=== PATIENT | female | born 1990 | race Caucasian/White ===

== ENCOUNTER → 2023-11-29 06:35 | Day surgery (SDC) | payer OTHER, SELFPAY ==
[2023-11-29 10:25] LABS: HCG, Serum Qualitative Screen Negative
== END ==
LOC: GI 06:35
PROVIDERS: Anesthesiology; ATTENDING PHYSICIAN Internal Medicine; FAMILY PHYSICIAN Family Medicine
DX: K62.89 Other specified diseases of anus and rectum (principal); Z87.19 Personal history of other diseases of the digestive system
CPT/HCPCS: 45331; 88305; 84703

== ENCOUNTER → 2024-06-27 09:08 | Outpatient (REF) | payer BC, SELFPAY | LOC: PNTC 09:08 | PROVIDERS: ATTENDING PHYSICIAN Obstetrics & Gynecology | DX: Z36.0 Encounter for antenatal screening for chromosomal anomalies (principal); Z36.82 Encounter for antenatal screening for nuchal translucency | CPT/HCPCS: 76801; 76813 ==

== ENCOUNTER → 2024-07-25 08:51 | Outpatient (REF) | payer BC, SELFPAY | LOC: PNTC 08:51 | PROVIDERS: ATTENDING PHYSICIAN Obstetrics & Gynecology | DX: Z87.74 Personal history of (corrected) congenital malformations of heart and circulatory system (principal); K51.00 Ulcerative (chronic) pancolitis without complications; O09.519 Supervision of elderly primigravida, unspecified trimester; O09.529 Supervision of elderly multigravida, unspecified trimester | CPT/HCPCS: 76805 ==

== ENCOUNTER → 2024-09-12 13:28 | Outpatient (REF) | payer BC, OTHER, SELFPAY | LOC: PNTC 13:28 | PROVIDERS: ATTENDING PHYSICIAN Obstetrics & Gynecology | DX: O09.529 Supervision of elderly multigravida, unspecified trimester (principal); Z87.59 Personal history of other complications of pregnancy, childbirth and the puerperium; Z87.74 Personal history of (corrected) congenital malformations of heart and circulatory system | CPT/HCPCS: 76811; 76817 ==

== ENCOUNTER → 2024-11-27 13:19 | Outpatient (REF) | payer BC, OTHER, SELFPAY | LOC: PNTC 13:19 | PROVIDERS: ATTENDING PHYSICIAN Obstetrics & Gynecology | DX: O09.529 Supervision of elderly multigravida, unspecified trimester (principal) | CPT/HCPCS: 76816 ==

== ENCOUNTER 2024-12-26 11:26 | Inpatient (IN) | payer BC, OTHER, SELFPAY ==
[2024-12-26 11:31] VITALS: BP 117/98; BMI 26.1
[2024-12-26] MEDS: LR 1000 IV ×2 (11:51→14:10)
[2024-12-26 11:58] LABS: Hematocrit 34.3 % (37.0-47.0); Hemoglobin 11.2 g/dL (12.0-16.0); Mean Corp Hgb Conc. 32.7 g/dL (33.0-37.0); Mean Corpuscular Volume 88.9 fL (81.0-99.0); Nucleated Red Blood Cells % 0 %; Platelet Count 216 10^3/uL (130-400); Red Cell Dist. Width 14.2 % (11.5-14.5)
[2024-12-26] MEDS: SUBLIMAZE 100 MCG EPIDURAL (12:22)
[2024-12-26] MEDS: FENTANYL/BUPIVACAINE 100 EPIDURAL (12:33)
[2024-12-26] MEDS: PITOCIN 30 UNITS/NSS 500 ML IV (17:24)
[2024-12-26] MEDS: XYLOCAINE-MPF 1% VIAL 30 ML INFIL (17:30)
[2024-12-26] MEDS: TORADOL 15 MG IV (18:17)
[2024-12-26] MEDS: PRENATAL PLUS 1 TABLET PO (21:08)
[2024-12-26] MEDS: COLACE PO (21:11)
[2024-12-27] MEDS: MOTRIN 600 MG PO ×4 (01:29→21:06)
[2024-12-27 05:10] LABS: Hematocrit 28.4 % (37.0-47.0); Hemoglobin 9.2 g/dL (12.0-16.0)
[2024-12-27] MEDS: COLACE 100 MG PO ×2 (07:58→20:43)
[2024-12-27] MEDS: FEOSOL 325 MG PO (07:58)
[2024-12-27] MEDS: PRENATAL PLUS 1 TABLET PO (20:43)
[2024-12-28] MEDS: MOTRIN 600 MG PO ×2 (03:07→09:48)
[2024-12-28] MEDS: FEOSOL 325 MG PO (08:36)
[2024-12-28] MEDS: COLACE 100 MG PO (08:36)
[2024-12-29 11:13] LABS: Syphilis/T. pallidum Ab Reflex Negative (Negative)
== END 2024-12-28 12:55 | disposition home or self-care (01) | DRG 768 ==
LOC: LDRP 11:26
PROVIDERS: ADMITTING PHYSICIAN Obstetrics & Gynecology
PROC: 10E0XZZ Delivery of Products of Conception, External Approach (ICD-10-PCS; 2024-12-26)
PROC: 10907ZC Drainage of Amniotic Fluid, Therapeutic from Products of Conception, Via Natural or Artificial Opening (ICD-10-PCS; 2024-12-26)
PROC: 0DQR0ZZ Repair Anal Sphincter, Open Approach (ICD-10-PCS; 2024-12-26)
DX: O76 Abnormality in fetal heart rate and rhythm complicating labor and delivery (principal); Z37.0 Single live birth; O70.20 Third degree perineal laceration during delivery, unspecified; Z3A.38 38 weeks gestation of pregnancy
CPT/HCPCS: 85014; 85018; 85025; 86780; 86850; 86900; 86901; 88307

== ENCOUNTER 2024-12-30 11:06 | Emergency (ER) | payer BC, OTHER, SELFPAY ==
[2024-12-30 11:22] VITALS: BP 135/96
--- NOTE | 2024-12-30 12:27 | ED.GENMED ---
History of Present Illness
General
Chief Complaint: Fever
Time Seen by Provider: 12/30/24 11:48
Nursing documentation reviewed up to this point in time: agreed with
History of Present Illness
History of Present Illness:
34-year-old female, , 4 days from spontaneous vaginal delivery presents to the ER for evaluation of fever. She reports that she was feeling achy last night and took her temperature reporting a temperature of 101.4. She took Tylenol
last night with resolution of symptoms. She awakened this morning feeling generally tired with persistent sore throat. She reports a feeling of chest congestion, similar to when she had pneumonia after she delivered her daughter previously. She
denies any nausea vomiting or diarrhea. She has been having normal bowel movements since delivery. She denies dysuria or urinary frequency. She denies feeling short of breath. She did not take any antipyretics or pain relievers this morning.
She has been breast-feeding. She reports mild breast soreness right breast greater than left.
Phy Exam
Physical Exam
Physical Exam:
Patient is awake, alert, appears in no acute distress, head is normocephalic atraumatic, no photophobia, mucous membranes moist, posterior pharynx appears clear without exudates or erythema, no significant anterior cervical lymphadenopathy
appreciated, heart regular rate and rhythm that murmurs or ectopy, lungs are clear to auscultation without wheezes rales or rhonchi, bilateral breasts are examined, nontender, no erythema, no overlying skin change, there is a small spot of dried
blood present on the right nipple, abdomen is soft and nontender on palpation, extremities without edema, GCS 15
Sepsis
Sepsis Screening
Sepsis Assessment: Sepsis Ruled Out
Sepsis Screen
Sepsis Screen: Sepsis Ruled Out
Date: 12/30/24
Time: 14:04
Course
Orders/Labs/Results
Orders:
Orders
12/30/24 12:07
CR Chest - 2 Views Urgent
Comment:
Reason For Exam: fever
12/30/24 12:22
COVID-19 Antigen Urgent
Source: Nasal Swab
Influenza A+B Rapid Molecular Urgent
KYLIE Source: Nasal Swab
Specimen Description:
Negative COVID and flu.
I independently viewed and interpreted two-view chest x-ray showing no infiltrate. I reviewed radiology interpretation which also reports no infiltrate, no acute process
Vital Signs
Initial and Last Documented VS:
Initial Vital Signs
Temp Pulse Resp BP Pulse Ox
98.6 F 109 16 135/96 98
12/30/24 11:22 12/30/24 11:22 12/30/24 11:22 12/30/24 11:22 12/30/24 11:22
Last Documented Vital Signs
Temp Pulse Resp BP Pulse Ox
98.6 F 109 16 135/96 98
12/30/24 11:22 12/30/24 11:22 12/30/24 11:22 12/30/24 11:22 12/30/24 12:32
MDM/Problems Addressed
Differential Diagnosis Includes:
Differential diagnosis to consider but not limited to fever, COVID, flu, pneumonia along with other etiologies considered
Chronic conditions affecting care:
Crohn's disease, on mesalamine treatment only
*Pulse Oximetry
SaO2: 98
Oxygen Mode of Delivery: Room air
Patient hypoxic: no
*Critical Care Note
Total Time (30-74mins, 75-104mins- exclusive of procedures): Not Applicable
Update Note
Update Note:
Patient resting comfortably. No fever while here in the department. I discussed with her very reassuring workup including negative viral testing and clear chest x-ray. I discussed with her continued supportive treatment along with need to
increase oral fluids, in particular if she is still breast-feeding. Patient expressed understanding of need for discharge home. Awaiting consultation prior to discharge.
ED Attending Note
-
Portions of this chart may have been created with voice recognition software.� Occasional wrong word or��sound alike� substitutions may have occurred due to the inherent limitations of voice recognition software.
Discharge Plan
Departure
Patient Disposition: Home (Routine Discharge)
Date of Disposition: 12/30/24
Time of Disposition: 14:00
Patient with high blood pressure during this ER visit?: No
Discharge Problem:
Fever, Nipple fissure, Upper respiratory infection
Prescriptions:
No Action
mesalamine 500 mg Suppository
1 g SD HS
prenat.vits,vianey,hjx-mjok-fzglu Tablet
1 tab PO HS
sennosides [Leonila-abbie] 8.6 mg Tablet
17.2 mg PO HSPRN PRN (Reason: constipation) Qty: 0 0RF
acetaminophen 325 mg Tablet
650 mg PO Q4HPRN PRN (Reason: mild pain) Qty: 0 0RF
ferrous sulfate [FeroSul] 325 mg (65 mg iron) Tablet
325 mg PO DAILY Qty: 0 0RF
docusate sodium 100 mg Capsule
100 mg PO BID Qty: 0 0RF
ibuprofen 600 mg Tablet
600 mg PO Q6HPRN PRN (Reason: moderate pain/cramps) Qty: 30 0RF
Referrals:
Henna Sullivan MD [Family Provider, Family Practice]
Activity Restrictions/Additional Instructions:
Encourage fluids. Please follow-up with your MANAGER [facility] as scheduled, return to the ER for any concerns
Interventions
Interventions:
*Risk Screen - Suicide Last Done: 12/30/24 11:22
*Neglect/Abuse Screening Last Done: 12/30/24 11:22
Discharge Date and Time
Print Language: ARABIC
[2024-12-30 12:55] LABS: COVID-19 Antigen Negative (Negative)
--- NOTE | 2024-12-30 14:43 | LACTATION ---
Jerica and baby Riley came to the ED with concerns about intake. Riley hadn't had a bowel movement in over 24 hours. Jerica also thought that he had only had 1 wet diaper in the past 12 hours, but I could see dried urine on his outfit so that would
account for another wet diaper.
Baby is well appearing and his weight loss is approximately 10%. He had some red blood in his spit up but that is likely from Jerica's nipple damage.
Assisted with positioning changes to help with Jerica's comfort during feedings. Worked on cross-cradle and football holds.
Weighted feeding revealed 0.5 oz. intake on right breast and 0.6 oz. intake on left. this is excellent intake for day 4 of life. No supplementation is recommended.
[2024-12-30 15:35] VITALS: BP 132/76
== END 2024-12-30 15:35 | disposition home or self-care (01) ==
LOC: EMR 11:06
PROVIDERS: EMERGENCY PHYSICIAN Emergency Medicine; FAMILY PHYSICIAN Family Medicine
DX: O99.53 Diseases of the respiratory system complicating the puerperium (principal); J06.9 Acute upper respiratory infection, unspecified; O92.12 Cracked nipple associated with the puerperium; Z11.52 Encounter for screening for COVID-19
CPT/HCPCS: 99284; 71046; 87502; 87811